=== PATIENT | female | born 1975 | race Caucasian/White ===

== ENCOUNTER 2017-01-17 18:41 | Emergency (ER) | payer MEDICAID ==
[~2017-01-17] VITALS: Ht 157.5 cm; Wt 105.0 kg
[~2017-01-17 18:41] MED LIST: ACET500C5 PO; ALBU8.5H3 INH; AUG875 PO; AZIT250T94 PO; IBUP-1706 PO; IBUP800T25 PO; PRED20TA PO; UDTYLC PO
[2017-01-17 19:02] VITALS: Ht 157.5 cm; Wt 105.0 kg
--- NOTE | 2017-01-17 22:36 | ERD ---
ER Documentation Chief Complaint Chief Complaint C/O left chest pain, non radiating. Hx: of Asthma, Anxiety HPI The patient is a 41-year-old female, presenting to the ER because of left-sided chest discomfort for 1 day, worse with movement, has similar symptoms previously , denies fever, chills, neck pain, chest pain with exertion/vomiting/diaphoresis , abdominal pain, vomiting. She does not smoke nor drink Past medical history: Asthma, anxiety past Surgical history: Tubal ligation ROS All systems reviewed and are negative except as per history of present illness. Medications Home Meds Active Scripts Ibuprofen* (Motrin*) 600 Mg Tab, 600 MG PO Q6H Y for PAIN, #30 TAB Prov:ERIK ODELL MD 01/18/17 Discontinued Reported Medications Acetaminophen* (Tylophen*) Unknown Strength Capsule, PO Q8H Y for PAIN AND OR ELEVATED TEMP, #20 CAP 04/27/15 Discontinued Scripts Albuterol Sulfate* (Proair HFA*) 8.5 Gm Hfa.aer.ad, 2 PUFF INH Q4, #1 INHALER Prov:BRIDGER BALTAZAR PA-C 07/10/15 Prednisone* (Prednisone*) 20 Mg Tab, 40 MG PO DAILY for 4 Days, TAB Prov:BRIDGER BALTAZAR PA-C 07/10/15 Azithromycin* (Zithromax*) 250 Mg Tablet, 250 MG PO .ZPACK DIRECTED, #6 TAB TAKE 500 MG (2 TABS) THE FIRST DAY THEN 250 MG (1 TAB) DAYS 2-5 Prov:BRIDGER BALTAZAR PA-C 07/10/15 Ibuprofen* Susp (Motrin* Susp) 20 Mg/Ml Susp, 20 ML PO Q6H Y for PAIN AND OR ELEVATED TEMP, #8 OZ Prov:BEN MORAN NP 04/26/15 Acetaminophen-Codeine* (Tylenol-Codeine* Liq) [id number] Elix, 5 ML PO Q6H Y for PAIN, #4 OZ Prov:BEN MORAN COBOL ENGINEER 04/26/15 Amoxicillin-Clavulanate K* (Augmentin*) 875 Mg Tab, 875 MG PO BID for 10 Days, TAB Prov:BEN MORAN COBOL ENGINEER 04/26/15 Ibuprofen* (Ibuprofen*) 800 Mg Tablet, 800 MG PO Q8 for 10 Days, TAB Prov:LOLA DUBOES DO 03/23/15 Allergies Allergies: Coded Allergies: No Known Allergy (Unverified , 01/18/17) PMhx/Soc History of Surgery: Yes (tubal ligation 2003) Hx Neurological Disorder: No Hx Respiratory Disorders: Yes (asthma) Hx Cardiac Disorders: No Hx Psychiatric Problems: No Hx Miscellaneous Medical Probl: No Hx Alcohol Use: No Hx Substance Use: No Hx Tobacco Use: Yes (quit 3 years ago) Physical Exam Vitals Vital Signs Date Time Temp Pulse Resp B/P Pulse Ox O2 Delivery O2 Flow Rate FiO2 01/18/17 02:31 98.5 91 18 138/84 98 Room Air 01/18/17 01:44 98.6 80 20 144/98 99 Room Air 01/17/17 23:34 Nasal Cannula 2 01/17/17 19:02 98.7 97 22 154/97 98 Physical Exam Const: No acute distress. Head: Atraumatic. Eyes: Normal Conjunctiva. ENT: Normal External Ears, Nose and Mouth. Neck: Full range of motion. No meningismus. Resp: Clear to auscultation bilaterally. Cardio: Regular rate and rhythm. The left chest wall tenderness on palpation, no crepitus Abd: Soft, non distended, normal bowel sounds, non tender. Skin: No petechiae or rashes. Back: No midline or flank tenderness. Ext: No cyanosis, or edema. Neur: Awake and alert. No focal deficit Psych: Normal Mood and Affect. Result Diagram: 01/17/17 2330 01/17/17 2330 Results 24 hrs Laboratory Tests Test 01/17/17 23:30 01/17/17 23:48 White Blood Count 8.810^3/ul Red Blood Count 4.7610^6/ul Hemoglobin 13.5g/dl Hematocrit 41.3% Mean Corpuscular Volume 86.8fl Mean Corpuscular Hemoglobin 28.4pg Mean Corpuscular Hemoglobin Concent 32.7g/dl Red Cell Distribution Width 13.7% Platelet Count 67263^3/UL Mean Platelet Volume 11.0fl Neutrophils % 45.4% Lymphocytes % 39.3% Monocytes % 7.4% Eosinophils % 6.7% Basophils % 1.0% Nucleated Red Blood Cells % 0.0/100WBC Neutrophils # 4.010^3/ul Lymphocytes # 3.510^3/ul Monocytes # 0.710^3/ul Eosinophils # 0.610^3/ul Basophils # 0.110^3/ul Nucleated Red Blood Cells # 0.010^3/ul Prothrombin Time 14.2Sec Prothrombin Time Ratio 1.1 INR International Normalized Ratio 1.10 Activated Partial Thromboplast Time 28.7Sec D-Dimer 220.00ng/ml D-Dimer Comment Sodium Level 141mmol/L Potassium Level 4.3mmol/L Chloride Level 105mmol/L Carbon Dioxide Level 31mmol/L Anion Gap 9 Blood Urea Nitrogen 12mg/dl Creatinine 0.71mg/dl Glucose Level 95mg/dl Calcium Level 9.3mg/dl Troponin I < 0.012ng/ml Bedside Urine pH (LAB) 5.5 Bedside Urine Protein (LAB) Trace Bedside Urine Glucose (UA) Negative Bedside Urine Ketones (LAB) Negative Bedside Urine Blood Trace-lysed Bedside Urine Nitrite (LAB) Negative Bedside Urine Leukocyte Esterase (L Negative Current Medications Medications (Trade) Dose Ordered Sig/Cheryl Route PRN Reason Start Time Stop Time Status Last Admin Dose Admin Ketorolac Tromethamine (Toradol) 30 mg ONCE STAT IV 01/18/17 01:17 01/18/17 01:18 DC 01/18/17 01:25 Procedures/[place] [id number] Radiology Main Line: [phone] DIAGNOSTIC IMAGING REPORT Patient: STU MCINTYRE : 1975 Age: 41 Sex: F MR #: [id number] DOS: 01/17/17 0000 Ordering MD: ERIK ODELL MD Location: E/R Room/Bed: PROCEDURE: Portable chest x-ray. CLINICAL INDICATION: Chest pain. TECHNIQUE: Portable AP view of the chest. COMPARISON: 03/23/2015. FINDINGS: No pulmonary edema or conolidation is identified. The cardiac silhouette is magnified. No pleural effusion is seen. There is no pneumothorax. IMPRESSION: 1. No evidence of acute cardiopulmonary disease. RPTAT: HTAR .Jakob Kern MD, MD Date Time Electronically viewed and signed by .Jakob Kern MD, MD on 01/18/2017 01:23 .R/ CC: ERIK ODELL MD EKG: Read by emergency physician Rate/Rhythm: Sinus tachycardia 107 beats/min QRS, ST, T-waves: No ST elevation, no T inversion Impression: Abnormal EKG MEDICAL MAKING DECISION: The patient is a 41-year-old female, presenting with acute chest wall pain for 1 day, most likely musculoskeletal. She was treated with Toradol 30 mg iv with good response. She is stable for outpatient follow- up The differential diagnoses considered include but are not limited to acute coronary syndrome, acute myocardial infarction, pericarditis, pulmonary embolism , aortic dissection, pneumonia, pleural effusion, pneumothorax, GERD, chest wall pain. Departure Diagnosis: Primary Impression: Chest pain Condition: Good Comments She was discharged with Motrin The patient's blood pressure was elevated (>120/80) but appears stable without evidence of hypertension emergency or urgency. The patient was counseled about the risks of hypertension and urged to pursue outpatient monitoring and therapy within a week with their primary care physician. I discussed the findings with the patient. I advised the patient to follow-up with the primary physician in about 1-2 days, sooner if needed and return if any concern. Disclaimer: Inadvertent spelling and grammatical errors are likely due to EHR/ dictation software use and do not reflect on the overall quality of patient care. Also, please note that the electronic time recorded on this note does not necessarily reflect the actual time of the patient encounter. ERIK ODELL MD Jan 17, 2017 22:36
--- NOTE | 2017-01-17 22:36 | ERD ---
ER Documentation Chief Complaint Chief Complaint C/O left chest pain, non radiating. Hx: of Asthma, Anxiety HPI The patient is a 41-year-old female, presenting to the ER because of left-sided chest discomfort for 1 day, worse with movement, has similar symptoms previously , denies fever, chills, neck pain, chest pain with exertion/vomiting/diaphoresis , abdominal pain, vomiting. She does not smoke nor drink Past medical history: Asthma, anxiety past Surgical history: Tubal ligation ROS All systems reviewed and are negative except as per history of present illness. Medications Home Meds Active Scripts Ibuprofen* (Motrin*) 600 Mg Tab, 600 MG PO Q6H Y for PAIN, #30 TAB Prov:ERIK ODELL MD 01/18/17 Discontinued Reported Medications Acetaminophen* (Tylophen*) Unknown Strength Capsule, PO Q8H Y for PAIN AND OR ELEVATED TEMP, #20 CAP 04/27/15 Discontinued Scripts Albuterol Sulfate* (Proair HFA*) 8.5 Gm Hfa.aer.ad, 2 PUFF INH Q4, #1 INHALER Prov:BRIDGER BALTAZAR PA-C 07/10/15 Prednisone* (Prednisone*) 20 Mg Tab, 40 MG PO DAILY for 4 Days, TAB Prov:BRIDGER BALTAZAR PA-C 07/10/15 Azithromycin* (Zithromax*) 250 Mg Tablet, 250 MG PO .ZPACK DIRECTED, #6 TAB TAKE 500 MG (2 TABS) THE FIRST DAY THEN 250 MG (1 TAB) DAYS 2-5 Prov:BRIDGER BALTAZAR PA-C 07/10/15 Ibuprofen* Susp (Motrin* Susp) 20 Mg/Ml Susp, 20 ML PO Q6H Y for PAIN AND OR ELEVATED TEMP, #8 OZ Prov:BEN MORAN NP 04/26/15 Acetaminophen-Codeine* (Tylenol-Codeine* Liq) [id number] Elix, 5 ML PO Q6H Y for PAIN, #4 OZ Prov:BEN MORAN PAINTER ROUGH 04/26/15 Amoxicillin-Clavulanate K* (Augmentin*) 875 Mg Tab, 875 MG PO BID for 10 Days, TAB Prov:BEN MORAN PAINTER ROUGH 04/26/15 Ibuprofen* (Ibuprofen*) 800 Mg Tablet, 800 MG PO Q8 for 10 Days, TAB Prov:LOLA DUBOSE DO 03/23/15 Allergies Allergies: Coded Allergies: No Known Allergy (Unverified , 01/18/17) PMhx/Soc History of Surgery: Yes (tubal ligation 2003) Hx Neurological Disorder: No Hx Respiratory Disorders: Yes (asthma) Hx Cardiac Disorders: No Hx Psychiatric Problems: No Hx Miscellaneous Medical Probl: No Hx Alcohol Use: No Hx Substance Use: No Hx Tobacco Use: Yes (quit 3 years ago) Physical Exam Vitals Vital Signs Date Time Temp Pulse Resp B/P Pulse Ox O2 Delivery O2 Flow Rate FiO2 01/18/17 02:31 98.5 91 18 138/84 98 Room Air 01/18/17 01:44 98.6 80 20 144/98 99 Room Air 01/17/17 23:34 Nasal Cannula 2 01/17/17 19:02 98.7 97 22 154/97 98 Physical Exam Const: No acute distress. Head: Atraumatic. Eyes: Normal Conjunctiva. ENT: Normal External Ears, Nose and Mouth. Neck: Full range of motion. No meningismus. Resp: Clear to auscultation bilaterally. Cardio: Regular rate and rhythm. The left chest wall tenderness on palpation, no crepitus Abd: Soft, non distended, normal bowel sounds, non tender. Skin: No petechiae or rashes. Back: No midline or flank tenderness. Ext: No cyanosis, or edema. Neur: Awake and alert. No focal deficit Psych: Normal Mood and Affect. Result Diagram: 01/17/17 2330 01/17/17 2330 Results 24 hrs Laboratory Tests Test 01/17/17 23:30 01/17/17 23:48 White Blood Count 8.810^3/ul Red Blood Count 4.7610^6/ul Hemoglobin 13.5g/dl Hematocrit 41.3% Mean Corpuscular Volume 86.8fl Mean Corpuscular Hemoglobin 28.4pg Mean Corpuscular Hemoglobin Concent 32.7g/dl Red Cell Distribution Width 13.7% Platelet Count 87612^3/UL Mean Platelet Volume 11.0fl Neutrophils % 45.4% Lymphocytes % 39.3% Monocytes % 7.4% Eosinophils % 6.7% Basophils % 1.0% Nucleated Red Blood Cells % 0.0/100WBC Neutrophils # 4.010^3/ul Lymphocytes # 3.510^3/ul Monocytes # 0.710^3/ul Eosinophils # 0.610^3/ul Basophils # 0.110^3/ul Nucleated Red Blood Cells # 0.010^3/ul Prothrombin Time 14.2Sec Prothrombin Time Ratio 1.1 INR International Normalized Ratio 1.10 Activated Partial Thromboplast Time 28.7Sec D-Dimer 220.00ng/ml D-Dimer Comment Sodium Level 141mmol/L Potassium Level 4.3mmol/L Chloride Level 105mmol/L Carbon Dioxide Level 31mmol/L Anion Gap 9 Blood Urea Nitrogen 12mg/dl Creatinine 0.71mg/dl Glucose Level 95mg/dl Calcium Level 9.3mg/dl Troponin I < 0.012ng/ml Bedside Urine pH (LAB) 5.5 Bedside Urine Protein (LAB) Trace Bedside Urine Glucose (UA) Negative Bedside Urine Ketones (LAB) Negative Bedside Urine Blood Trace-lysed Bedside Urine Nitrite (LAB) Negative Bedside Urine Leukocyte Esterase (L Negative Current Medications Medications (Trade) Dose Ordered Sig/Cheryl Route PRN Reason Start Time Stop Time Status Last Admin Dose Admin Ketorolac Tromethamine (Toradol) 30 mg ONCE STAT IV 01/18/17 01:17 01/18/17 01:18 DC 01/18/17 01:25 Procedures/[place] [id number] Radiology Main Line: [phone] DIAGNOSTIC IMAGING REPORT Patient: STU MCINTYRE : 1975 Age: 41 Sex: F MR #: [id number] DOS: 01/17/17 0000 Ordering MD: ERIK ODELL MD Location: E/R Room/Bed: PROCEDURE: Portable chest x-ray. CLINICAL INDICATION: Chest pain. TECHNIQUE: Portable AP view of the chest. COMPARISON: 03/23/2015. FINDINGS: No pulmonary edema or conolidation is identified. The cardiac silhouette is magnified. No pleural effusion is seen. There is no pneumothorax. IMPRESSION: 1. No evidence of acute cardiopulmonary disease. RPTAT: HTAR .Jakob Kern MD, MD Date Time Electronically viewed and signed by .Jakob Kern MD, MD on 01/18/2017 01:23 .R/ CC: ERIK ODELL MD EKG: Read by emergency physician Rate/Rhythm: Sinus tachycardia 107 beats/min QRS, ST, T-waves: No ST elevation, no T inversion Impression: Abnormal EKG MEDICAL MAKING DECISION: The patient is a 41-year-old female, presenting with acute chest wall pain for 1 day, most likely musculoskeletal. She was treated with Toradol 30 mg iv with good response. She is stable for outpatient follow- up The differential diagnoses considered include but are not limited to acute coronary syndrome, acute myocardial infarction, pericarditis, pulmonary embolism , aortic dissection, pneumonia, pleural effusion, pneumothorax, GERD, chest wall pain. Departure Diagnosis: Primary Impression: Chest pain Condition: Good Comments She was discharged with Motrin The patient's blood pressure was elevated (>120/80) but appears stable without evidence of hypertension emergency or urgency. The patient was counseled about the risks of hypertension and urged to pursue outpatient monitoring and therapy within a week with their primary care physician. I discussed the findings with the patient. I advised the patient to follow-up with the primary physician in about 1-2 days, sooner if needed and return if any concern. Disclaimer: Inadvertent spelling and grammatical errors are likely due to EHR/ dictation software use and do not reflect on the overall quality of patient care. Also, please note that the electronic time recorded on this note does not necessarily reflect the actual time of the patient encounter. ERIK ODELL MD Jan 17, 2017 22:36
--- NOTE | 2017-01-17 22:36 | ERD ---
ER Documentation Chief Complaint Chief Complaint C/O left chest pain, non radiating. Hx: of Asthma, Anxiety HPI The patient is a 41-year-old female, presenting to the ER because of left-sided chest discomfort for 1 day, worse with movement, has similar symptoms previously , denies fever, chills, neck pain, chest pain with exertion/vomiting/diaphoresis , abdominal pain, vomiting. She does not smoke nor drink Past medical history: Asthma, anxiety past Surgical history: Tubal ligation ROS All systems reviewed and are negative except as per history of present illness. Medications Home Meds Active Scripts Ibuprofen* (Motrin*) 600 Mg Tab, 600 MG PO Q6H Y for PAIN, #30 TAB Prov:ERIK ODELL MD 01/18/17 Discontinued Reported Medications Acetaminophen* (Tylophen*) Unknown Strength Capsule, PO Q8H Y for PAIN AND OR ELEVATED TEMP, #20 CAP 04/27/15 Discontinued Scripts Albuterol Sulfate* (Proair HFA*) 8.5 Gm Hfa.aer.ad, 2 PUFF INH Q4, #1 INHALER Prov:BRIDGER BALTAZAR PA-C 07/10/15 Prednisone* (Prednisone*) 20 Mg Tab, 40 MG PO DAILY for 4 Days, TAB Prov:BRIDGER BALTAZAR PA-C 07/10/15 Azithromycin* (Zithromax*) 250 Mg Tablet, 250 MG PO .ZPACK DIRECTED, #6 TAB TAKE 500 MG (2 TABS) THE FIRST DAY THEN 250 MG (1 TAB) DAYS 2-5 Prov:BRIDGER BALTAZAR PA-C 07/10/15 Ibuprofen* Susp (Motrin* Susp) 20 Mg/Ml Susp, 20 ML PO Q6H Y for PAIN AND OR ELEVATED TEMP, #8 OZ Prov:BEN MORAN NP 04/26/15 Acetaminophen-Codeine* (Tylenol-Codeine* Liq) [id number] Elix, 5 ML PO Q6H Y for PAIN, #4 OZ Prov:BEN MORAN COMPRESSOR OPERATOR PORTABLE 04/26/15 Amoxicillin-Clavulanate K* (Augmentin*) 875 Mg Tab, 875 MG PO BID for 10 Days, TAB Prov:BEN MORAN COMPRESSOR OPERATOR PORTABLE 04/26/15 Ibuprofen* (Ibuprofen*) 800 Mg Tablet, 800 MG PO Q8 for 10 Days, TAB Prov:LOLA DUBOSE DO 03/23/15 Allergies Allergies: Coded Allergies: No Known Allergy (Unverified , 01/18/17) PMhx/Soc History of Surgery: Yes (tubal ligation 2003) Hx Neurological Disorder: No Hx Respiratory Disorders: Yes (asthma) Hx Cardiac Disorders: No Hx Psychiatric Problems: No Hx Miscellaneous Medical Probl: No Hx Alcohol Use: No Hx Substance Use: No Hx Tobacco Use: Yes (quit 3 years ago) Physical Exam Vitals Vital Signs Date Time Temp Pulse Resp B/P Pulse Ox O2 Delivery O2 Flow Rate FiO2 01/18/17 02:31 98.5 91 18 138/84 98 Room Air 01/18/17 01:44 98.6 80 20 144/98 99 Room Air 01/17/17 23:34 Nasal Cannula 2 01/17/17 19:02 98.7 97 22 154/97 98 Physical Exam Const: No acute distress. Head: Atraumatic. Eyes: Normal Conjunctiva. ENT: Normal External Ears, Nose and Mouth. Neck: Full range of motion. No meningismus. Resp: Clear to auscultation bilaterally. Cardio: Regular rate and rhythm. The left chest wall tenderness on palpation, no crepitus Abd: Soft, non distended, normal bowel sounds, non tender. Skin: No petechiae or rashes. Back: No midline or flank tenderness. Ext: No cyanosis, or edema. Neur: Awake and alert. No focal deficit Psych: Normal Mood and Affect. Result Diagram: 01/17/17 2330 01/17/17 2330 Results 24 hrs Laboratory Tests Test 01/17/17 23:30 01/17/17 23:48 White Blood Count 8.810^3/ul Red Blood Count 4.7610^6/ul Hemoglobin 13.5g/dl Hematocrit 41.3% Mean Corpuscular Volume 86.8fl Mean Corpuscular Hemoglobin 28.4pg Mean Corpuscular Hemoglobin Concent 32.7g/dl Red Cell Distribution Width 13.7% Platelet Count 45866^3/UL Mean Platelet Volume 11.0fl Neutrophils % 45.4% Lymphocytes % 39.3% Monocytes % 7.4% Eosinophils % 6.7% Basophils % 1.0% Nucleated Red Blood Cells % 0.0/100WBC Neutrophils # 4.010^3/ul Lymphocytes # 3.510^3/ul Monocytes # 0.710^3/ul Eosinophils # 0.610^3/ul Basophils # 0.110^3/ul Nucleated Red Blood Cells # 0.010^3/ul Prothrombin Time 14.2Sec Prothrombin Time Ratio 1.1 INR International Normalized Ratio 1.10 Activated Partial Thromboplast Time 28.7Sec D-Dimer 220.00ng/ml D-Dimer Comment Sodium Level 141mmol/L Potassium Level 4.3mmol/L Chloride Level 105mmol/L Carbon Dioxide Level 31mmol/L Anion Gap 9 Blood Urea Nitrogen 12mg/dl Creatinine 0.71mg/dl Glucose Level 95mg/dl Calcium Level 9.3mg/dl Troponin I < 0.012ng/ml Bedside Urine pH (LAB) 5.5 Bedside Urine Protein (LAB) Trace Bedside Urine Glucose (UA) Negative Bedside Urine Ketones (LAB) Negative Bedside Urine Blood Trace-lysed Bedside Urine Nitrite (LAB) Negative Bedside Urine Leukocyte Esterase (L Negative Current Medications Medications (Trade) Dose Ordered Sig/Cheryl Route PRN Reason Start Time Stop Time Status Last Admin Dose Admin Ketorolac Tromethamine (Toradol) 30 mg ONCE STAT IV 01/18/17 01:17 01/18/17 01:18 DC 01/18/17 01:25 Procedures/[place] [id number] Radiology Main Line: [phone] DIAGNOSTIC IMAGING REPORT Patient: STU MCINTYRE : 1975 Age: 41 Sex: F MR #: [id number] DOS: 01/17/17 0000 Ordering MD: ERIK ODELL MD Location: E/R Room/Bed: PROCEDURE: Portable chest x-ray. CLINICAL INDICATION: Chest pain. TECHNIQUE: Portable AP view of the chest. COMPARISON: 03/23/2015. FINDINGS: No pulmonary edema or conolidation is identified. The cardiac silhouette is magnified. No pleural effusion is seen. There is no pneumothorax. IMPRESSION: 1. No evidence of acute cardiopulmonary disease. RPTAT: HTAR .Jakob Kern MD, MD Date Time Electronically viewed and signed by .Jakob Kern MD, MD on 01/18/2017 01:23 .R/ CC: ERIK ODELL MD EKG: Read by emergency physician Rate/Rhythm: Sinus tachycardia 107 beats/min QRS, ST, T-waves: No ST elevation, no T inversion Impression: Abnormal EKG MEDICAL MAKING DECISION: The patient is a 41-year-old female, presenting with acute chest wall pain for 1 day, most likely musculoskeletal. She was treated with Toradol 30 mg iv with good response. She is stable for outpatient follow- up The differential diagnoses considered include but are not limited to acute coronary syndrome, acute myocardial infarction, pericarditis, pulmonary embolism , aortic dissection, pneumonia, pleural effusion, pneumothorax, GERD, chest wall pain. Departure Diagnosis: Primary Impression: Chest pain Condition: Good Comments She was discharged with Motrin The patient's blood pressure was elevated (>120/80) but appears stable without evidence of hypertension emergency or urgency. The patient was counseled about the risks of hypertension and urged to pursue outpatient monitoring and therapy within a week with their primary care physician. I discussed the findings with the patient. I advised the patient to follow-up with the primary physician in about 1-2 days, sooner if needed and return if any concern. Disclaimer: Inadvertent spelling and grammatical errors are likely due to EHR/ dictation software use and do not reflect on the overall quality of patient care. Also, please note that the electronic time recorded on this note does not necessarily reflect the actual time of the patient encounter. ERIK ODELL MD Jan 17, 2017 22:36
[2017-01-18] MEDS ORDERED: KETOROLAC 30 MG INJ IV STA (01:17)
--- NOTE | 2017-01-18 01:23 | RADRPT ---
PROCEDURE: Portable chest x-ray. CLINICAL INDICATION: Chest pain. TECHNIQUE: Portable AP view of the chest. COMPARISON: 03/23/2015. FINDINGS: No pulmonary edema or conolidation is identified. The cardiac silhouette is magnified. No pleural effusion is seen. There is no pneumothorax. IMPRESSION: 1. No evidence of acute cardiopulmonary disease. RPTAT: HTAR .Jakob Kern MD, MD Date Time Electronically viewed and signed by .Jakob Kern MD, on 01/18/2017 01:23 .R/
[2017-01-18] MEDS ORDERED: IBUP-1542 PO (01:45)
[2017-01-18 02:31] VITALS: BP 138/84; PULSE 91; RESP 18; TEMP 98.5
== END 2017-01-18 02:33 | disposition home or self-care (01) ==
LOC: E/R 18:41
DX: R07.89 Other chest pain (principal); J45.909 Unspecified asthma, uncomplicated; Z87.891 Personal history of nicotine dependence
CPT/HCPCS: 36415; 71010; 80048; 81003; 84484; 85025; 85378; 85610; 85730; 93005; 96374; J1885; Z7502